=== PATIENT | female | born 1960 | race Caucasian/White ===

== ENCOUNTER 2024-05-09 07:43 | Outpatient (NON) | payer OTHER, SELFPAY | END 2024-05-09 07:44 | disposition home or self-care (01) | PROVIDERS: PCP Nurse Practitioner Family; Visit Provider Internal Medicine Gastroenterology | DX: Z12.11 Encounter for screening for malignant neoplasm of colon (principal); Z80.0 Family history of malignant neoplasm of digestive organs | CPT/HCPCS: 88305 ==

== ENCOUNTER 2024-05-09 09:46 | Day surgery (SDC) | payer OTHER, SELFPAY ==
[2024-04-18 11:22] VITALS: BMI 28.5
[2024-04-24 10:40] VITALS: BMI 28.5
--- NOTE | 2024-05-08 15:42 | P.HP_ITS ---
History of Present Illness History of Present Illness Consent: Risks, benefits, and alternatives have been discussed and questions answered. Patient agrees to proceed with procedure. Chief complaint: Neoplasm Screening Narrative: Nellie Figueroa is a 63 year old female who is referred for colon cancer screening. Several family members have had gastrointestinal cancers. Her sister was diagnosed with colon cancer a few weeks ago. [facility] Past Medical History Medical History Family history of Mendoza syndrome GERD (gastroesophageal reflux disease) Hilario's disease Hypothyroidism Social History Social History Smoking status: Never smoker Alcohol intake: current Drinks per week: 2 Alcohol use details: occasional Substance use: never Substance use type: does not use Lack of Transportation: No Lack of Food: Never True Current Housing: I Have Housing Concerned About Future Housing: No Difficulty Paying Gas/Electric Bills: No Difficulty Paying for Meds: No Currently Unemployed: No Education: High School Diploma/GED Difficulty w/ Childcare or Family Care: No Living arrangements: with family Occupation/Education: occupation Gender identity (if verbalized by the patient): Female Sexual Orientation (if Verbalized by the Patient): Straight or Heterosexual Spiritual care concerns: No Meds Home Medications and Allergies Home Medications Medication Instructions Recorded Confirmed Type fluticasone propionate 50 2 spray intranasal DAILY PRN 10/22/23 05/09/24 History mcg/actuation nasal Allergy Symptoms spray,suspension (Flonase Allergy Relief) montelukast 10 mg tablet 10 mg PO DAILY PRN Allergy Symptoms 10/22/23 05/09/24 History citalopram 10 mg tablet 10 mg PO DAILY #90 tabs 01/13/24 05/09/24 Rx citalopram 20 mg tablet 20 mg PO DAILY #90 tabs 01/13/24 05/09/24 Rx levothyroxine 50 mcg tablet 50 mcg PO DAILY #90 tabs 04/14/24 05/09/24 Rx famotidine 20 mg tablet (Pepcid AC) 20 mg PO DAILY 04/24/24 05/09/24 History Allergies Allergy/AdvReac Type Severity Reaction Status Date / Time amoxicillin Allergy Intermediate Hives / Verified 05/09/24 10:21 Red Face clavulanic acid Allergy Intermediate Hives / Verified 05/09/24 10:21 Red Face Penicillins Allergy Intermediate Hives / Verified 05/09/24 10:21 Red Face Assessment and Plan Assessment and plan (1) Family history of Mendoza syndrome: Code(s): Z80.0 - Family history of malignant neoplasm of digestive organs Status: Acute Assessment and Plan: Colonoscopy with possible biopsy or polypectomy or cautery or injection of substances.
--- NOTE | 2024-05-09 06:47 | P.PNAN_ITS ---
Anes - Initial Pre Proc Eval Procedure: Operation Date: 05/09/24 12:00 Proposed Procedures p Screening Colonoscopy - Mando Bennett MD Date/Time: 05/09/24 06:47 Surgeon: Mando Bennett MD Pre Op Diagnosis: Neoplasm Screening Patient Data Age: 63 Gender: F Height: 1.6 m Weight: 73 kg Allergies Allergy/AdvReac Type Severity Reaction Status Date / Time amoxicillin Allergy Intermediate Hives / Verified 05/09/24 10:21 Red Face clavulanic acid Allergy Intermediate Hives / Verified 05/09/24 10:21 Red Face Penicillins Allergy Intermediate Hives / Verified 05/09/24 10:21 Red Face Home Medications Medication Instructions Recorded Confirmed Type fluticasone propionate 50 2 spray intranasal DAILY PRN 10/22/23 05/09/24 History mcg/actuation nasal Allergy Symptoms spray,suspension (Flonase Allergy Relief) montelukast 10 mg tablet 10 mg PO DAILY PRN Allergy Symptoms 10/22/23 05/09/24 History citalopram 10 mg tablet 10 mg PO DAILY #90 tabs 01/13/24 05/09/24 Rx citalopram 20 mg tablet 20 mg PO DAILY #90 tabs 01/13/24 05/09/24 Rx levothyroxine 50 mcg tablet 50 mcg PO DAILY #90 tabs 04/14/24 05/09/24 Rx famotidine 20 mg tablet (Pepcid AC) 20 mg PO DAILY 04/24/24 05/09/24 History Patient hx anesthesia problems: none Family hx anesthesia problems: none Results Review: All pre-operative results and documents have been reviewed as part of the pre- operative evaluation. [facility] Past Medical History Medical History (Updated 05/08/24 @ 16:47 by Gregorio Black DO) Family history of Mendoza syndrome GERD (gastroesophageal reflux disease) Hilario's disease Hypothyroidism Social History Social History ) Smoking status: Never smoker Alcohol intake: current Drinks per week: 2 Alcohol use details: occasional Substance use: never Substance use type: does not use Lack of Transportation: No Lack of Food: Never True Current Housing: I Have Housing Concerned About Future Housing: No Difficulty Paying Gas/Electric Bills: No Difficulty Paying for Meds: No Currently Unemployed: No Education: High School Diploma/GED Difficulty w/ Childcare or Family Care: No Living arrangements: with family Occupation/Education: occupation Gender identity (if verbalized by the patient): Female Sexual Orientation (if Verbalized by the Patient): Straight or Heterosexual Spiritual care concerns: No Anes - Eval Final PreProcedure Day of Procedure 05/09/24 06:47 Patient weight: overweight Heart: regular rate and rhythm Lungs: clear to auscultation Airway: Mallampati scale class II Neurological: alert and oriented Last oral intake: >/= 8 hours ASA classification: II Emergent: no Anesthetic plan: proceed Anesthesia type and monitoring: general GIVS and standard monitoring Results Review: All pre-operative results and documents have been reviewed as part of the pre- operative evaluation. Informed Consent: The patient's anesthetic plan and its attendant risks and benefits were discussed with the patient/family/POA. Questions were solicited and answers provided to the satisfaction of the patient/family/POA.
[2024-05-09 10:23] VITALS: BP 130/82; PULSE 67; RESP 15; TEMP 36.7; O2SAT 100
[2024-05-09] MEDS: LACTATED RINGERS 1,000 ML 150 ML IV CONT (10:26)
[2024-05-09 11:41] VITALS: BP 108/60; PULSE 65; RESP 15; O2SAT 99
--- NOTE | 2024-05-09 11:43 | WPDANESPN ---
Anes - Prog Note Post-Op Date/Time: 05/09/24 11:43 Cardiovascular status: normal Respiratory status: normal Airway patency: baseline Mental status: baseline Post-Op hydration status: normal Vital Signs: Last Vital Signs Temp 36.7 C 05/09/24 10:23 Pulse 67 05/09/24 10:23 Resp 15 05/09/24 10:23 BP 130/82 05/09/24 10:23 Pulse Ox 100 05/09/24 10:23 O2 Del Method Room Air 05/09/24 10:23 Pain Score (VAS): 0 I/O: Intake & Output 05/08/24 05/09/24 05/09/24 23:59 07:59 15:59 Intake Total 300 Balance 300 Post-procedural complaints: none Patient Feedback: Patient satisfied with anesthetic care. Other Findings: Patient vital signs back to baseline. Patient denies nausea and vomiting. Patient's pain under control. Patient OK for discharge.
[2024-05-09 11:51] VITALS: BP 127/92; PULSE 67; RESP 16; O2SAT 100
[2024-05-09 12:01] VITALS: BP 128/90; PULSE 71; RESP 15; O2SAT 100
== END 2024-05-09 12:25 | disposition home or self-care (01) ==
PROVIDERS: PCP Nurse Practitioner Family; Visit Provider Internal Medicine Gastroenterology
PROC: 0DJD8ZZ Inspection of Lower Intestinal Tract, Via Natural or Artificial Opening Endoscopic (ICD-10-PCS; CPT 45378; principal; 2024-05-09 12:00)
DX: Z12.11 Encounter for screening for malignant neoplasm of colon (principal); D12.2 Benign neoplasm of ascending colon; D12.5 Benign neoplasm of sigmoid colon; K57.30 Diverticulosis of large intestine without perforation or abscess without bleeding
CPT/HCPCS: 45385